=== PATIENT | male | born 1975 | race Hispanic/Latino ===

== ENCOUNTER 2021-09-30 10:56 | Emergency (ER) | payer OTHER ==
[~2021-09-30] VITALS: Ht 177.8 cm; Wt 110.2 kg
[2021-09-30] MEDS ORDERED: TETRACAINE HCL 0.5% OPTH SOLN 4 ML BTL OP ONE (11:15)
[2021-09-30] MEDS ORDERED: FLUORESCEIN SOD(OPTH) 1 MG STRP OP ONE (11:15)
[2021-09-30] MEDS ORDERED: TETRACAINE HCL 0.5% OPTH SOLN 4 ML BTL ONE (11:21)
[2021-09-30] MEDS ORDERED: FLUORESCEIN SOD(OPTH) 1 MG STRP ONE (11:21)
[2021-09-30] MEDS ORDERED: LISINOPRIL10 MG PO (11:24)
[2021-09-30] MEDS ORDERED: VIGAMOX3 ML OS (11:28)
== END 2021-09-30 11:40 | disposition home or self-care (01) ==
LOC: FSED 11:06
DX: H18.822 Corneal disorder due to contact lens, left eye (principal); H10.32 Unspecified acute conjunctivitis, left eye; I10 Essential (primary) hypertension; F17.210 Nicotine dependence, cigarettes, uncomplicated
CPT/HCPCS: 99282